=== PATIENT | female | born 1985 | race Caucasian/White ===

== ENCOUNTER 2020-01-06 07:55 | Outpatient (CLI) | payer OTHER, SELFPAY ==
--- NOTE | ~2020-01-06 | US_ITS ---
US right upper quadrant INDICATION: Right upper quadrant pain PROCEDURE: Realtime right upper abdominal ultrasound. COMPARISON: No prior studies for comparison. FINDINGS: The pancreas is normal without focal mass or pancreatic ductal dilation. Liver echotexture is normal without focal mass or intrahepatic biliary dilatation. There is normal directional flow i n the portal vein. Gallbladder is surgically absent. Common bile duct measures 4.5 mm. No sonographic Vanegas's sign. IMPRESSION: 1: Unremarkable abdominal ultrasound postcholecystectomy. Reviewed, dictated and finalized at location A.
[2020-01-06 08:09] LABS: Hematocrit 40.7 % (37.0-47.0); Hemoglobin 13.1 g/dL (12.0-15.0); Mean Corpuscular HGB Conc 32.2 g/dl (32-36); Mean Corpuscular Hemoglobin 30.1 pg (26-34); Mean Corpuscular Volume 93.6 fl (80-100); Mean Platelet Volume 9.8 fl (7.4-10.4); Platelet Count Result 147 k/mm3 (150-375); Red Blood Count 4.35 M/mm3 (4.2-5.4); Red Cell Distribution Width 12.2 % (11.5-14.5); White Blood Count 5.4 K/mm3 (4.5-10.0)
[2020-01-06 08:19] LABS: Alanine Aminotransferase 20 U/L (4-35); Alkaline Phosphatase 50 U/L (38-126); Aspartate Amino Transferase 41 U/L (14-36); Bilirubin,Total 0.4 mg/dL (0.2-1.3); Blood Urea Nitrogen 13 mg/dL (7-17); Calcium 8.8 mg/dL (8.4-10.2); Carbon Dioxide 28 mmol/L (22-30); Chloride 106 mmol/L (98-107); Estimated Glomerular Filt Rate > 60; Glucose 93 mg/dL (65-105); Potassium 4.3 mmol/L (3.4-5.0); Sodium 138 mmol/L (137-145)
== END 2020-01-06 07:56 | disposition home or self-care (01) ==
PROVIDERS: PCP Internal Medicine; Visit Provider Surgery
DX: R10.11 Right upper quadrant pain (principal)
CPT/HCPCS: 36415; 76705; 80053; 85027

== ENCOUNTER 2021-03-06 01:15 | Day surgery (SDC) | payer OTHER, SELFPAY ==
[2021-02-28 08:39] VITALS: BMI 33.9
--- NOTE | 2021-03-03 15:58 | WPDANESEPPF ---
Anes - Initial Pre Proc Eval Procedure: Operation Date: 03/06/21 07:30 Proposed Procedures p Laparoscopic Bilateral Salpingectomy - Valerie Sibley MD Date/Time: 03/03/21 15:58 Surgeon: Valerie Sibley MD Pre Op Diagnosis: sterilzation Patient Data Age: 36 Gender: F Height: 1.68 m Weight: 95.4 kg Allergies Allergy/AdvReac Type Severity Reaction Status Date / Time nitrofurantoin AdvReac Severe SWELLING Verified 03/06/21 06:05 OF PERINEAL AREA Sulfa (Sulfonamide AdvReac Unknown rash Verified 03/06/21 06:05 Antibiotics) Home Medications Medication Instructions Recorded Confirmed Type 24Hour Allergy 180 mg PO DAILY 02/28/21 02/28/21 History sertraline [Zoloft] 100 mg PO DAILY 02/28/21 02/28/21 History Patient hx anesthesia problems: post op nausea/vomiting Family hx anesthesia problems: none PMFSH Past Medical History Medical History (Updated 03/03/21 @ 16:00 by Jass Galvan DO) Anxiety Asthma PONV (postoperative nausea and vomiting) Surgical History Surgical History (Updated 03/03/21 @ 16:00 by Jass Galvan DO) History of cholecystectomy Family History Family History (Updated 06/25/17 @ 11:16 by DOCTOR UNKNOWN) Other Diabetes mellitus Family history of allergic disorder Family history of kidney disease Family history of malignant neoplasm Hypertension Social History Social History Smoking packs per day: 0.5 Smoking cigarettes per day: 10.0 Years smoked: 15 Smoking pack-years: 7.50 Smoking status: Former smoker Tobacco type: cigarettes Smoking end date: 02/14/21 Alcohol intake: current Drinks per week: 3 Substance use: never Substance use type: does not use Living arrangements: with family Gender identity (if verbalized by the patient): Female Sexual Orientation (if Verbalized by the Patient): Straight or Heterosexual Spiritual care concerns: No Anes - Eval Final PreProcedure Day of Procedure 03/03/21 15:58 Patient weight: obese Heart: regular rate and rhythm Lungs: clear to auscultation and normal air movement Airway: Mallampati scale class II Neurological: alert and oriented Last oral intake: >/= 8 hours ASA classification: II Emergent: no Anesthetic plan: proceed Anesthesia type and monitoring: general ETT and standard monitoring Informed Consent: The patient's anesthetic plan and its attendant risks and benefits were discussed with the patient/family/POA. Questions were solicited and answers provided to the satisfaction of the patient/family/POA.
[2021-03-06] VITALS (9 sets, daily range): BP systolic 85–121; BP diastolic 44–66; PULSE 56–74; RESP 10–16; TEMP 36.5–36.8; O2SAT 95–99
[2021-03-06] MEDS: ACETAMINOPHEN 500 MG TABLET 1000 MG PO (06:21)
[2021-03-06] MEDS: LACTATED RINGERS 1,000 ML 30 ML IV CONT ×2 (06:25→09:10)
[2021-03-06] MEDS: KETOROLAC 15 MG/ML VIAL (*BKC) IV PUSH (06:28)
--- NOTE | 2021-03-06 07:07 | WPDHPUPDATE1 ---
History and Physical Update Update Date/Time: 03/06/21 07:07 History and Physical has been reviewed, including an updated exam of the patient. There are NO changes in the patient's condition. Risks, benefits, and alternatives have been discussed and questions answered. Patient agrees to proceed with procedure.
[2021-03-06] MEDS: FAMOTIDINE 20 MG/2 ML VIAL IV PUSH (07:10)
[2021-03-06] MEDS: SCOPOLAMINE 1.5 MG PATCH TRANSDERM (07:11)
--- NOTE | 2021-03-06 08:17 | W.PM.PROC2 ---
Procedure Note - Detailed Date of Procedure 03/06/21 Pre-op Diagnosis sterilzation Post-op Diagnosis same Procedure Performed Laparoscopic bilateral salpingectomy Surgeon Valerie Sibley MD Anesthesia general Indications Unwanted fertility Findings Normal pelvic anatomy Description of Procedure The patient was taken the operating room. She was prepped and draped in the dorsal lithotomy position after induction of general anesthesia. A 5 mm skin incision was made in the left upper quadrant of the abdominal skin. A 5 mm trocar was inserted the intra-abdominal cavity under direct visualization of the scope. Pneumoperitoneum was achieved. A 5 mm trocar was inserted in the left lower quadrant identical fashion. A 5 mm infraumbilical trocar was inserted in identical fashion as well. The bilateral fallopian tubes were removed. This was done by using a LigaSure cautery. The mesosalpinx adjacent to the tube was cauterized transected with LigaSure. This was initiated in the area the ovary and in a stepwise fashion moved medially to the area of the cornu of the uterus. Once there the fallopian tube was cauterized and transected. This was done in identical fashion on each side. The fallopian tubes were taken out through the left lower quadrant trocar site. The pneumoperitoneum was reduced. The trocars removed. The skin was closed with subcuticular 4 Monocryl and covered with Dermabond. She was taken to cover stable condition. Sponge lap and needle counts were correct x2. Estimated Blood Loss 5 Drains No Packing No Pathology yes Complications No immediate complications Condition stable Disposition PACU
[2021-03-06] MEDS: ONDANSETRON INJ 4 MG/2 ML VIAL IV PUSH (08:28)
[2021-03-06] MEDS: fentaNYL CITRATE INJ (*CRX) 100 MCG/2 ML VIAL 25 MCG IV PUSH ×2 (08:42→08:45)
[2021-03-06] MEDS: oxyCODONE HCL (*CRX) 5 MG TAB IR PO (09:20)
== END 2021-03-06 10:20 | disposition home or self-care (01) ==
PROVIDERS: PCP Internal Medicine; Visit Provider Obstetrics & Gynecology
PROC: (CPT 49320; principal; 2021-03-06 07:30)
DX: Z30.2 Encounter for sterilization (principal); F41.9 Anxiety disorder, unspecified; J45.909 Unspecified asthma, uncomplicated; Z87.891 Personal history of nicotine dependence; E66.9 Obesity, unspecified; Z68.34 Body mass index [BMI] 34.0-34.9, adult; N83.8 Other noninflammatory disorders of ovary, fallopian tube and broad ligament
CPT/HCPCS: 58661; 88302; A9270; J1100; J1885; J2250; J2405; J2704; J2710; J3010; J7030; J7120